=== PATIENT | female | born 1960 | race Caucasian/White ===

== ENCOUNTER → 2018-01-27 | Outpatient (CLI) | payer MEDICARE ==
--- NOTE | 2018-01-27 09:40 | RADIOLOGY REPORT (SQ) ---
EXAM DESCRIPTION: U/S ABDOMEN COMPLETE W/O DOP COMPLETED DATE/TIME: 01/27/2018 9:25 am REASON FOR STUDY: EPIGASTRIC PAIN R10.13 EPIGASTRIC PAIN R14.0 ABDOMINAL DISTENSION (GASEOUS) COMPARISON: None. TECHNIQUE: Dynamic and static grayscale images acquired of the abdomen and recorded on PACS. Additio nal selected color Doppler and spectral images recorded. LIMITATIONS: Midline bowel gas FINDINGS: PANCREAS: No masses. Visualized pancreatic duct normal caliber. LIVER: No masses. Echotexture normal. LIVER VASCULATURE: Normal directional flow of the main portal vein and hepatic veins. GALLBLADDER: No stones. Normal wall thickness. No pericholecystic fluid. ULTRASOUND-DETECTED MAY'S SIGN: Negative. INTRAHEPATIC DUCTS AND COMMON DUCT: CBD and intrahepatic ducts normal caliber. No filling defects. INFERIOR VENA CAVA: Normal flow. AORTA: No aneurysm. RIGHT KIDNEY: Normal size. Normal echogenicity. No solid or suspicious masses. No hydronephros is. No calcifications. LEFT KIDNEY: Normal size. Normal echogenicity. No solid or suspicious masses. No hydronephrosi s. No calcifications. SPLEEN: Normal size. No solid masses. PERITONEAL AND PLEURAL SPACES: No ascites or effusions. OTHER: No other significant finding. IMPRESSION: NORMAL ABDOMINAL ULTRASOUND. TECHNICAL DOCUMENTATION: JOB ID: [id number] [facility]- All Rights Reserved Reading location - IP/workstation name: [email or web address]
== END ==
LOC: RAD 08:41
PROVIDERS: ATTEND Internal Medicine Gastroenterology
DX: R10.13 Epigastric pain (principal); R14.0 Abdominal distension (gaseous); R68.81 Early satiety
CPT/HCPCS: 76700

== ENCOUNTER 2018-02-13 09:54 | Emergency (ER) | payer MEDICARE ==
[2018-02-13] MEDS ORDERED: KETOROLAC TROMETHAMINE 60 MG/2 ML SDV IM ONE (10:26)
[2018-02-13] MEDS ORDERED: DIAZEPAM INJ 10 MG/2 ML DISP.SYRIN IM ONE (10:26)
--- NOTE | 2018-02-13 10:42 | ER Document Report ---
ED Neck/Back Problem - General Chief Complaint: Numbness Stated Complaint: NECK SHOULDER PAIN Time Seen by Provider: 02/13/18 10:14 Mode of Arrival: Ambulatory Information source: Patient TRAVEL OUTSIDE OF THE [place] IN LAST 30 DAYS: No - HPI Patient complains to provider of: Pain, Neck Onset: This morning Where: Home Onset: Gradual Timing: Constant Quality of pain: Achy Severity: Moderate Pain Level: 4 Recent injury: No Associated symptoms: Radiation to arm Exacerbated by: Movement of neck Relieved by: Nothing Notes: Patient is a 57-year-old female presenting to the emergency room today complaining of right neck pain that she started feel when she woke up this morning at 4 AM, she did have pain on the left neck over the past few days from lifting something heavy, that has since resolved, she does report repetitive motion yesterday because she was cleaning and scrubbing and using her right arm quite a bit, she denies any chest pain, no shortness of breath, she does have a headache with tenderness to palpate in her posterior scalp, denies any injury or trauma, she does have a pins and needle sensation in her distal right arm and hand, she has been using ice and heat at home in an attempt to alleviate her symptoms - Related Data Allergies/Adverse Reactions: acetaminophen [From Percocet] Allergy (Verified 02/13/18 09:57) aspirin [From Percodan] Allergy (Verified 02/13/18 09:57) blue Allergy (Verified 02/13/18 09:57) morphine Allergy (Verified 02/13/18 09:57) oxycodone [From Percocet] Allergy (Verified 02/13/18 09:57) Penicillins Allergy (Verified 02/13/18 09:57) Past Medical History - General Information source: Patient - Social History Smoking Status: Never Smoker Family History: Reviewed & Not Pertinent Review of Systems - Review of Systems Constitutional: No symptoms reported EENT: No symptoms reported Cardiovascular: No symptoms reported Respiratory: No symptoms reported Gastrointestinal: No symptoms reported Genitourinary: No symptoms reported Female Genitourinary: No symptoms reported Musculoskeletal: See HPI Skin: No symptoms reported Hematologic/Lymphatic: No symptoms reported Neurological/Psychological: Numbness, Tingling -: Yes All other systems reviewed and negative Physical Exam - Vital signs Vitals: Temp Pulse Resp BP Pulse Ox 97.9 F 77 16 175/72 H 95 02/13/18 10:08 02/13/18 10:08 02/13/18 10:02/13/18 10:08 02/13/18 10:08 Interpretation: Normal - General General appearance: Appears well, Alert - HEENT Head: Normocephalic, Atraumatic Eyes: Normal Conjunctiva: Normal Extraocular movements intact: Yes Eyelashes: Normal Pupils: PERRL Neck: Other - Tenderness to palpate in the right paraspinal musculature of the cervical spine, tenderness in the right trapezius muscle, pain with range of motion testing including side bending and rotation of the cervical spine, fullness to the right paraspinal musculature and trapezius muscle - Respiratory Respiratory status: No respiratory distress Chest status: Nontender Breath sounds: Normal Chest palpation: Normal - Cardiovascular Rhythm: Regular Heart sounds: Normal auscultation Murmur: No - Abdominal Inspection: Normal Distension: No distension Bowel sounds: Normal Tenderness: Nontender Organomegaly: No organomegaly - Back Back: Normal, Nontender - Extremities General upper extremity: Normal inspection, Nontender, Normal color, Normal ROM , Normal temperature General lower extremity: Normal inspection, Nontender, Normal color, Normal ROM , Normal temperature. No: Emmanuel's sign - Neurological Neuro grossly intact: Yes Cognition: Normal Orientation: AAOx4 Alexandre Coma Scale Eye Opening: Spontaneous Alexandre Coma Scale Verbal: Oriented Alexandre Coma Scale Motor: Obeys Commands [place] Coma Scale Total: 15 Speech: Normal Motor strength normal: LUE, RUE, LLE, RLE Sensory: Normal - Psychological Associated symptoms: Normal affect, Normal mood - Skin Skin Temperature: Warm Skin Moisture: Dry Skin Color: Normal Course - Re-evaluation Re-evalutation: 02/13/18 11:19 Patient reports feeling some relief of symptoms with medications that were administered, imaging findings were discussed at bedside which are consistent with degenerative changes and 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, symptoms are musculoskeletal in nature, she will be given a prescription for muscle relaxers and anti-inflammatory medication as well as instructions for follow-up, advised to return if symptoms worsen, patient acknowledges understanding and agreement with this plan - Vital Signs Vital signs: Temp Pulse Resp BP Pulse Ox 97.9 F 77 16 175/72 H 95 02/13/18 10:08 02/13/18 10:08 02/13/18 10:08 02/13/18 10:08 02/13/18 10:08 - Diagnostic Test Radiology reviewed: Image reviewed, Reports reviewed Discharge - Discharge Clinical Impression: Cervical strain, acute Qualifiers: Encounter type: initial encounter Qualified Code(s): S16.1XXA - Strain of muscle, fascia and tendon at neck level, initial encounter Condition: Stable Disposition: HOME, SELF-CARE Instructions: Neck Injury (Cervical Strain) ([facility]), Muscle Relaxers ([facility]), Muscle Strain ([facility]) Additional Instructions: Follow up with your primary care provider in one to 2 days. Return to the emergency room immediately if symptoms worsen or any additional concerns. Prescriptions: Diazepam [Valium 2 mg Tablet] 2 mg PO QHS PRN #12 tablet PRN Reason: Ibuprofen [Motrin 600 mg Tablet] 600 mg PO Q8HP PRN #30 tablet PRN Reason:
--- NOTE | 2018-02-13 11:03 | RADIOLOGY REPORT (SQ) ---
EXAM DESCRIPTION: CT HEAD WITHOUT COMPLETED DATE/TIME: 02/13/2018 10:52 am REASON FOR STUDY: injury COMPARISON: None. TECHNIQUE: Axial images acquired through the brain without intravenous contrast. Images reviewed wi th bone, brain and subdural windows. Additional sagittal and coronal reconstructions were generated. Images stored on PACS. All CT scanners at this facility use dose modulation, iterative reconstruction, and/or weight based d osing when appropriate to reduce radiation dose to as low as reasonably achievable (ALARA). [facility]: Dose Right [facility]: CareDose [facility]: Dose Right [facility]: Teradose 4D [facility]: [employer] RADIATION DOSE: CT Rad equipment meets quality standard of care and radiation dose reduction techniq ues were employed. CTDIvol: 53.2 mGy. DLP: 1044 mGy-cm. mGy. LIMITATIONS: None. FINDINGS: VENTRICLES: Normal size and contour. CEREBRUM: No masses. No hemorrhage. No midline shift. No evidence for acute infarction. Normal gra y/white matter differentiation. No areas of low density in the white matter. CEREBELLUM: No masses. No hemorrhage. No alteration of density. No evidence for acute infarction. EXTRAAXIAL SPACES: No fluid collections. No masses. ORBITS AND GLOBE: No intra- or extraconal masses. Normal contour of globe without masses. CALVARIUM: No fracture. PARANASAL SINUSES: No fluid or mucosal thickening. SOFT TISSUES: No mass or hematoma. OTHER: No other significant finding. IMPRESSION: NORMAL BRAIN CT WITHOUT CONTRAST. EVIDENCE OF ACUTE STROKE: No COMMENT: PACs was down at the time of scanning. Report called to Dr. Bloom, 1050 hours 02/13/2018 Quality ID # [id number]: Final reports with documentation of one or more dose reduction techniques (e.g., Au tomated exposure control, adjustment of the mA and/or kV according to patient size, use of iterative reconstruction technique) TECHNICAL DOCUMENTATION: JOB ID: [id number] [employer]- All Rights Reserved Reading location - IP/workstation name: [email or web address]
--- NOTE | 2018-02-13 11:07 | RADIOLOGY REPORT (SQ) ---
EXAM DESCRIPTION: CT CERVICAL SPINE WITHOUT COMPLETED DATE/TIME: 02/13/2018 10:52 am REASON FOR STUDY: injury COMPARISON: CT brain same date TECHNIQUE: Axial images acquired through the cervical spine without intravenous contrast. Images re viewed with lung, soft tissue and bone windows. Reconstructed coronal and sagittal MPR images review ed. Images stored on PACS. All CT scanners at this facility use dose modulation, iterative reconstruction, and/or weight based d osing when appropriate to reduce radiation dose to as low as reasonably achievable (ALARA). [facility]: Dose Right [facility]: CareDose [facility]: Dose Right [facility]: Teradose 4D [facility]: [employer] RADIATION DOSE: CT Rad equipment meets quality standard of care and radiation dose reduction techniq ues were employed. CTDIvol: 28.7 mGy. DLP: 537 mGy-cm. mGy. LIMITATIONS: None. FINDINGS: ALIGNMENT: Anatomic. MINERALIZATION: Normal. VERTEBRAL BODIES: No fractures or dislocation. DISCS: Craniocervical junction, C1-2, are unremarkable. Moderate right foraminal narrowing at C2-3 from facet and uncovertebral hypertrophy. At C3-4, moderate central canal stenosis results from broad diffuse disc bulge and bony spurring and ossification of the posterior longitudinal ligaments. High-grade bilateral foraminal narrowing at C3 -4 is present. At C4-5, moderate central canal stenosis right greater than left results from ossification of posteri or longitudinal ligaments and disc bulge/bony spurring. There is high-grade right and moderate left foraminal narrowing. At C5-6, mild to moderate central canal stenosis results from broad diffuse disc bulge and bony spurr ing along with ossification of posterior longitudinal ligament. High-grade right, moderate left fora alaina narrowing. At C6-7, mild to moderate central canal stenosis results from broad diffuse disc bulge and bony spurr ing. Mild right, moderate left foraminal narrowing from facet and uncovertebral spurring. At C7-T1 mild bilateral foraminal narrowing results from facet and uncovertebral hypertrophy. FACETS, LATERAL MASSES, POSTERIOR ELEMENTS: Multilevel facet and uncovertebral hypertrophy. No fract ure. HARDWARE: None in the spine. VISUALIZED RIBS: No fractures. LUNG APICES AND SOFT TISSUES: No significant or acute findings. OTHER: Report called to Dr. Bloom, 1050 hours 02/13/2018. PACs was down IMPRESSION: Multilevel central and foraminal stenosis. No acute fracture TECHNICAL DOCUMENTATION: JOB ID: [id number] Quality ID # [id number]: Final reports with documentation of one or more dose reduction techniques (e.g., Au tomated exposure control, adjustment of the mA and/or kV according to patient size, use of iterative reconstruction technique) 2010 [employer]- All Rights Reserved Reading location - IP/workstation name: [email or web address] [id number]
[2018-02-13 12:03] VITALS: BP 135/65
== END 2018-02-13 12:03 | disposition home or self-care (01) ==
LOC: ER 09:54
DX: S16.1XXA Strain of muscle, fascia and tendon at neck level, initial encounter (principal); X58.XXXA Exposure to other specified factors, initial encounter; M54.2 Cervicalgia; R51 Headache; R20.2 Paresthesia of skin; R20.0 Anesthesia of skin; Z88.5 Allergy status to narcotic agent; Z88.6 Allergy status to analgesic agent; Z91.018 Allergy to other foods; Z88.0 Allergy status to penicillin
CPT/HCPCS: 99283; 96372; 70450; 72125; J3360; J1885